=== PATIENT | female | born 1940 | race Caucasian/White ===

== ENCOUNTER 2017-08-13 07:28 | Outpatient (CLI) | payer MEDICARE, BC ==
[2017-08-13] MEDS ORDERED: Iopamidol 370 76% 100 ML VIAL ONE (09:00)
--- NOTE | 2017-08-13 10:38 | CT ---
CT OF ABDOMEN AND PELVIS PERFORMED WITH AND WITHOUT CONTRAST ENHANCEMENT: Date: 08/13/17 HISTORY: Explosive nausea, vomiting, and diarrhea. Multiple previous abdomen surgeries, including cholecystect brian, appendectomy, and hysterectomy. FINDINGS: The lung bases show linear scarring. There is a hypodensity within the liver, most compatible with a cyst. The spleen and pancreas regions are unremarkable. The gallbladder has been removed and there is some biliary ductal dilatation, comp atible with cholecystectomy. Right and left adrenal glands, and the right and left kidneys are normal in size. There is a 4-5 mm l ower pole right renal calculus noted. There is no significant periaortic or mesenteric lymphadenopath y. CT of pelvis was performed with and without contrast enhancement. Post appendectomy changes are seen. There is a pessary in place. There is no evidence of adenopathy, mass, or free fluid. There are atherosclerotic changes of the aorta and iliac vessels. Arthritic changes of the spine are present. IMPRESSION: No acute abnormalities of the abdomen or pelvis. POS: NANI
== END 2017-08-13 07:29 | disposition home or self-care (01) ==
LOC: SCSCT 07:28
PROVIDERS: ATTEND Family Medicine
DX: R10.30 Lower abdominal pain, unspecified (principal)
CPT/HCPCS: 74178; 82565

== ENCOUNTER 2018-02-11 12:39 | Outpatient (CLI) | payer MEDICARE, BC ==
[2018-02-11 13:53] LABS: ALT (SGPT) 66 U/L (8-55); AST (SGOT) 44 U/L (5-34); Alkaline Phosphatase 155 U/L (40-150); Anion Gap 7 mmol/L (10-20); BUN (Urea Nitrogen) 19 mg/dL (9.8-20.1); Bilirubin, Total 0.4 mg/dL (0.2-1.2); Calc. Creatinine Clearance 0 mL/min (70-130); Carbon Dioxide 29 mmol/L (23-31); Chloride 106 mmol/L (98-107); Estimated GFR-MDRD 64; Globulin 2.9 g/dL (2.4-3.5); Glucose 95 mg/dL (83-110); Potassium 4.3 mmol/L (3.5-5.1); Protein, Total 6.9 g/dL (6.0-8.3); Sodium 138 mmol/L (136-145)
--- NOTE | 2018-02-14 17:43 | EKG ---
Test Reason : Blood Pressure : / mmHG Vent. Rate : 069 BPM Atrial Rate : 069 BPM P-R Int : 102 ms QRS Dur : 074 ms QT Int : 402 ms P-R-T Axes : 028 066 055 degrees QTc Int : 430 ms Electronic atrial pacemaker When compared with ECG of 04-FEB-2017 09:53, No significant change was found Confirmed by ENMA MOHR (2) on 02/14/2018 5:42:43 PM Referred By: MAGGIE Confirmed By:ENMA MOHR
== END 2018-02-11 12:40 | disposition home or self-care (01) ==
LOC: LABBT 12:39
PROVIDERS: ATTEND Internal Medicine Cardiovascular Disease
DX: Z01.818 Encounter for other preprocedural examination (principal)
CPT/HCPCS: 80053; 93005; 93010

== ENCOUNTER 2018-02-16 05:54 | Day surgery (SDC) | payer MEDICARE, BC ==
[2018-02-11 13:06] VITALS: BMI 32.4
[2018-02-16] MEDS ORDERED: Lidocaine 1% (PF) 30 ML VIAL ONE (06:38)
[2018-02-16] MEDS ORDERED: Fentanyl 100 MCG/2 ML VIAL ONE (07:52)
[2018-02-16] MEDS ORDERED: Midazolam HCl 2 mg/2 ml Vial ONE (07:52)
[2018-02-16] MEDS ORDERED: Iopamidol 370 76% 100 ML VIAL ONE (15:12)
--- NOTE | 2018-02-16 19:23 | DIS ---
DATE OF ADMISSION: 02/16/2018. DATE OF DISCHARGE: 02/16/2018. DISCHARGE DIAGNOSES: 1. Coronary artery disease. 2. History of coronary artery bypass graft surgery. 3. Hypertension. 4. History of pacemaker placement. 5. Hypothyroidism. This patient is a pleasant 77-year-old woman with a history of coronary artery disease. She is status post coronary artery bypass surgery x2 in December of 2005. The patient underwent a cardiac catheterization in 2007 which revealed 2 patent grafts. The patient had reported having increasing chest discomfort. The patient was placed on Ranexa. She underwent a PET scan which revealed possible inferior ischemia. HOSPITAL COURSE: On 02/16/2018, the patient underwent a left heart catheterization. She was found to have normal left ventricular ejection fraction 65-70%. The left anterior descending artery had 100% occlusion. The left circumflex artery and right coronary artery free of significant disease. The left internal mammary artery to the left anterior descending was patent vessel as well as the saphenous vein graft to the first diagonal branch. The patient was felt to have no evidence of progressive coronary artery disease. The patient will continue on medical therapy. Her discharge medications: Aspirin 162 day, Lipitor 80 daily, Wellbutrin 300 q.a.m., Prozac 20 daily, Synthroid 88 mcg daily, metoprolol 100 b.i.d., ramipril 10 at bedtime, Zantac 150 b.i.d. MTDD
== END 2018-02-16 14:00 | disposition home or self-care (01) ==
LOC: CCL 05:54
PROVIDERS: ATTEND Internal Medicine Cardiovascular Disease
PROC: B21F1ZZ Fluoroscopy of Other Bypass Graft using Low Osmolar Contrast (ICD-10-PCS; principal; 2018-02-16)
PROC: B2181ZZ Fluoroscopy of Left Internal Mammary Bypass Graft using Low Osmolar Contrast (ICD-10-PCS; 2018-02-16)
PROC: B2111ZZ Fluoroscopy of Multiple Coronary Arteries using Low Osmolar Contrast (ICD-10-PCS; 2018-02-16)
DX: I25.10 Atherosclerotic heart disease of native coronary artery without angina pectoris (principal); I10 Essential (primary) hypertension; E03.9 Hypothyroidism, unspecified; E78.5 Hyperlipidemia, unspecified; Z95.1 Presence of aortocoronary bypass graft; Z95.0 Presence of cardiac pacemaker; Z79.82 Long term (current) use of aspirin; Z79.899 Other long term (current) drug therapy
CPT/HCPCS: 93459; C1769; 99152; J1644; J2001; J2250; J3010

== ENCOUNTER 2018-05-10 10:59 | Day surgery (SDC) | payer MEDICARE, BC ==
[2018-05-10] MEDS ORDERED: Phenylephrine 2.5% Ophth Soln 5 ML BOT ONE (11:32)
== END 2018-05-10 12:35 | disposition home or self-care (01) ==
LOC: SDC 10:59
PROVIDERS: ATTEND Ophthalmology
PROC: 085J3ZZ Destruction of Right Lens, Percutaneous Approach (ICD-10-PCS; principal; 2018-05-10)
DX: H26.491 Other secondary cataract, right eye (principal); I10 Essential (primary) hypertension; Z95.1 Presence of aortocoronary bypass graft; Z88.1 Allergy status to other antibiotic agents; Z91.018 Allergy to other foods; Z88.8 Allergy status to other drugs, medicaments and biological substances; Z79.899 Other long term (current) drug therapy

== ENCOUNTER 2018-05-26 14:10 | Outpatient (CLI) | payer MEDICARE, BC ==
--- NOTE | 2018-05-26 16:18 | RAD ---
FRONTAL AND LATERAL IMAGING OF THE CHEST 05/26/18 COMPARISON: 09/21/14 HISTORY: Cough. FINDINGS: There is a dual lead transvenous pacing device inserted via a left subclavian approach. There are pos toperative clips in the right upper quadrant suggesting prior cholecystectomy. Heart and mediastinal contours are stable. Increased linear interstitial density noted bilaterally, stable as well. IMPRESSION: Stable chronic findings as described above. No lobar consolidation or alveolar edema. POS: FIORDALIZA
== END 2018-05-26 14:11 | disposition home or self-care (01) ==
LOC: SCSRAD 14:10
PROVIDERS: ATTEND Nurse Practitioner Family
DX: J40 Bronchitis, not specified as acute or chronic (principal); J98.4 Other disorders of lung
CPT/HCPCS: 71046

== ENCOUNTER 2019-02-18 13:41 | Outpatient (CLI) | payer MEDICARE, BC ==
--- NOTE | 2019-02-18 14:08 | MMO ---
Bilateral MAMMO Bilat Screen [facility]. CLINICAL HISTORY: Patient is 78 years old and is seen for screening. The patient has no family history of breast cancer. The patient has no personal history of cancer. The patient has a history of left Excisional Biopsy in 1982 - benign. VIEWS: The views performed were: bilateral craniocaudal with tomosynthesis and bilateral mediolateral oblique with tomosynthesis. FILMS COMPARED: The present examination has been compared to prior imaging studies performed at [facility] on 03/29/2013, 06/05/2014, 06/23/2015 and 07/14/2016. This study has been interpreted with the assistance of computer-aided detection. MAMMOGRAM FINDINGS: There are scattered fibroglandular densities. There are stable benign appearing calcifications seen in both breasts. There are no suspicious masses, suspicious calcifications, or new areas of architectural distortion. IMPRESSION: THERE IS NO MAMMOGRAPHIC EVIDENCE OF MALIGNANCY. A ROUTINE FOLLOW-UP MAMMOGRAM IN 1 YEAR IS RECOMMENDED. THE RESULTS OF THIS EXAM WERE SENT TO THE PATIENT. ACR BI-RADS Category 2 - Benign finding MAMMOGRAPHY NOTE: 1. A negative mammogram report should not delay a biopsy if a dominant of clinically suspicious mass is present. 2. Approximately 10% to 15% of breast cancers are not detected by mammography. 3. Adenosis and dense breasts may obscure an underlying neoplasm. Reported by: JEREMY LARSON MD Electonically Signed: [id number]
== END 2019-02-18 13:42 | disposition home or self-care (01) ==
LOC: BICMAMMO 13:41
PROVIDERS: ATTEND Family Medicine
DX: Z12.31 Encounter for screening mammogram for malignant neoplasm of breast (principal); Z91.89 Other specified personal risk factors, not elsewhere classified
CPT/HCPCS: 77063; 77067

== ENCOUNTER 2021-12-13 14:48 | Outpatient (CLI) | payer MEDICARE, BC ==
[2021-12-13 16:18] LABS: #Eosinphils 0.3 10x3/uL (0.0-0.5); #Monocytes 0.5 10x3/uL (0.0-1.1); #Neutrophils 3.7 10x3/uL (1.5-8.4); %Basophils 0.7 % (0.0-2.0); %Eosinophils 5.2 % (0.0-6.0); %Lymphocytes 21.5 % (18.0-47.0); %Neutrophils 64.3 % (40.0-75.0); Hemoglobin 12.8 g/dL (12.0-15.5); Mean Corpuscular HGB CONC 31.4 g/dL (32.0-36.0); Mean Corpuscular Volume 95.6 fl (81.6-98.3); Mean Platelet Volume 12.3 fl (7.4-10.4); Platelet Count 158 10x3/uL (150-450); RBC Distribution Width 14.4 % (11.5-14.5); Red Blood Cell (RBC) Count 4.27 10x6/uL (3.90-5.03); White Blood Cell (WBC) Count 5.8 10x3/uL (3.5-10.5)
[2021-12-13 16:37] LABS: Anion Gap 12 mmol/L (10-20); BUN (Urea Nitrogen) 31 mg/dL (9.8-20.1); Calc. Creatinine Clearance 0 mL/min (70-130); Calcium 9.1 mg/dL (7.8-10.44); Carbon Dioxide 29 mmol/L (23-31); Chloride 105 mmol/L (98-107); Estimated GFR 71; Glucose 100 mg/dL (83-110); Potassium 4.8 mmol/L (3.5-5.1); Sodium 141 mmol/L (136-145)
== END 2021-12-13 14:49 | disposition home or self-care (01) ==
LOC: LABBT 14:48
PROVIDERS: ATTEND Internal Medicine Cardiovascular Disease
DX: Z01.812 Encounter for preprocedural laboratory examination (principal); Z20.822 Contact with and (suspected) exposure to COVID-19
CPT/HCPCS: 80048; 85025; 87811

== ENCOUNTER 2021-12-16 09:01 | Day surgery (SDC) | payer MEDICARE, BC ==
[2021-12-13 11:13] VITALS: BMI 22.4
[2021-12-16] MEDS ORDERED: Lidocaine 1% (PF) 30 ML VIAL ONE (12:01)
[2021-12-16] MEDS ORDERED: Gentamicin 80 MG/2 ML VIAL ONE (12:01)
[2021-12-16] MEDS ORDERED: CEFAZOLIN 1 GM VIAL ONE (12:01)
[2021-12-16] MEDS ORDERED: Fentanyl 100 MCG/2 ML VIAL ONE (12:45)
[2021-12-16] MEDS ORDERED: Midazolam HCl 2 mg/2 ml Vial ONE (12:46)
== END 2021-12-16 15:15 | disposition home or self-care (01) ==
LOC: SDC 09:01
PROVIDERS: ATTEND Internal Medicine Cardiovascular Disease
PROC: 0JPT0PZ Removal of Cardiac Rhythm Related Device from Trunk Subcutaneous Tissue and Fascia, Open Approach (ICD-10-PCS; principal; 2021-12-16)
PROC: 0JH606Z Insertion of Pacemaker, Dual Chamber into Chest Subcutaneous Tissue and Fascia, Open Approach (ICD-10-PCS; 2021-12-16)
DX: Z45.010 Encounter for checking and testing of cardiac pacemaker pulse generator [battery] (principal); I49.5 Sick sinus syndrome; I49.8 Other specified cardiac arrhythmias; I47.1 Supraventricular tachycardia; E03.9 Hypothyroidism, unspecified; I48.0 Paroxysmal atrial fibrillation; E78.5 Hyperlipidemia, unspecified; I10 Essential (primary) hypertension; I25.118 Atherosclerotic heart disease of native coronary artery with other forms of angina pectoris; Z87.891 Personal history of nicotine dependence; Z79.82 Long term (current) use of aspirin; Z79.890 Hormone replacement therapy; Z79.899 Other long term (current) drug therapy; Z88.1 Allergy status to other antibiotic agents; Z88.6 Allergy status to analgesic agent; Z88.8 Allergy status to other drugs, medicaments and biological substances; Z91.018 Allergy to other foods; Z95.1 Presence of aortocoronary bypass graft
CPT/HCPCS: 33263; C1785; 99152; J0690; J1580; J2001; J2250; J3010